=== PATIENT | male | born 1945 ===

== ENCOUNTER 2021-06-09 14:25 | Outpatient (CLI) | payer OTHER | END 2021-06-09 14:45 | disposition home or self-care (01) | LOC: PPH VACUNA 14:25 | PROVIDERS: ATTEND Emergency Medicine Pediatric Emergency Medicine | DX: Z23 Encounter for immunization (principal) ==

== ENCOUNTER 2022-08-21 18:01 | Inpatient (IN) | payer OTHER ==
[~2022-08-21] VITALS: Ht 167.6 cm; Wt 152.9 kg
[2022-08-21] MEDS ORDERED: ZESTRIL10 M1 PO (18:20)
[2022-08-21] MEDS ORDERED: CRESTOR10 MG PO (18:20)
[2022-08-21] MEDS ORDERED: BISOPROLOL-HCT1 EAC2 PO (18:21)
[2022-08-21] MEDS ORDERED: OXYCONTIN10 M1 PO (18:23)
[2022-08-21] MEDS ORDERED: UROXATRAL10 MG PO (18:23)
--- NOTE | 2022-08-21 18:24 | NUR ---
PACIENTE MASCULINO ALERTA Y ORIENTADO X3, QUIEN REFIERE PERESENTAR [place] Y ARDOR AL ORINAR DESDE HACE DOS BAEZ. SE MONITOREAN VS Y SE UBICA EN PASILLO.
--- NOTE | 2022-08-21 18:43 | NUR ---
PTE MASCULINO EVALUADO POR . SE ORIENTA SOBRE ORDENES DE [place] REFIERE COMPRENDER. SE COLECTAN MUESTRAS DE LABORATORIOS Y SE CANALIZA VENA BAJO MEDIDAS ASEPTICAS. SE ADMINISTRAN LIQUIDOS INTRAVENOSOS, DENI ORDEN MEDICA. PTE MANEJADO POR CEDRIC RENTERIA.
== END 2022-08-24 23:00 | disposition home or self-care (01) | DRG 690 ==
LOC: ER 18:01 → MEDI 22:17
PROVIDERS: ADMIT Internal Medicine; ATTEND Internal Medicine
PROC: BW21ZZZ Computerized Tomography (CT Scan) of Abdomen and Pelvis (ICD-10-PCS; principal; 2022-08-21)
DX: N39.0 Urinary tract infection, site not specified (principal); N17.9 Acute kidney failure, unspecified; B96.20 Unspecified Escherichia coli [E. coli] as the cause of diseases classified elsewhere; D50.0 Iron deficiency anemia secondary to blood loss (chronic); D69.6 Thrombocytopenia, unspecified